=== PATIENT | female | born 1970 | race Caucasian/White ===

== ENCOUNTER 2023-06-16 13:07 | Inpatient (IN) | payer SELFPAY ==
[2023-06-16 14:41] LABS: BASOPHILS % (AUTO) 0.5 %; EOSINOPHILS % (AUTO) 0.5 %; HCT - HEMATOCRIT 33.2 % (37.0-47.0); LYMPHOCYTES # (AUTO) 0.3 10^3/uL (1.5-3.5); LYMPHOCYTES % (AUTO) 5.9 %; MEAN CORPUSCULAR HEMOGLOBIN 30.8 pg (27.0-31.0); MEAN CORPUSCULAR HGB CONC 33.1 g/dL (32.0-36.0); MEAN PLATELET VOLUME 8.7 fL (7.9-10.8); MONOCYTES # (AUTO) 0.7 10^3/uL (0.0-1.0); MONOCYTES % (AUTO) 11.5 %; NEUTROPHILS # (AUTO) 4.7 10^3/uL (1.5-6.6); NEUTROPHILS % (AUTO) 80.7 %; PLT - PLATELET COUNT 154 10^3/uL (130-450); RED BLOOD COUNT 3.57 10^6/uL (4.20-5.40); RED CELL DISTRIBUTION WIDTH 14.8 % (12.0-15.0); WHITE BLOOD COUNT 5.8 x10^3/uL (4.8-10.8)
--- NOTE | 2023-06-16 14:44 | ED Physician Documentation ---
PD HPI ABD PAIN - Stated complaint Stated Complaint: - Chief complaint Chief Complaint: Abd Pain - History obtained from History obtained from: Patient - Additional information Additional information: Patient is a 53-year-old female with no prior abdominal surgeries presenting for evaluation of decreased bowel movements for the past 2 to 3 weeks. Patient states she has been trying Dulcolax without any improvement. She states that she usually has an issue with constipation And that it often times can be several weeks between bowel movements. She does report inserting her finger into her rectum today to see if there was any stool and did not feel much. She reports having some associated nausea and 2 episodes of vomiting yesterday. No abdominal tenderness. Again no prior abdominal surgeries. She does report having decreased p.o. intake in the last week and does report feeling lightheaded now with standing. Review of Systems Constitutional: denies: Fever Cardiac: denies: Chest pain / pressure Respiratory: denies: Dyspnea GI: reports: Nausea, Constipation. denies: Abdominal Pain : denies: Dysuria PD PAST MEDICAL HISTORY - Past Medical History Past Medical History: No Cardiovascular: None Respiratory: None Neuro: None Endocrine/Autoimmune: None GI: None [employer]IDENT [place]: None : None HEENT: None Psych: None Musculoskeletal: None Derm: None - Past Surgical History Past Surgical History: Yes - Allergies Allergies/Adverse Reactions: Allergies Allergy/AdvReac Type Severity Reaction Status Date / Time No Known Drug Allergies Allergy Verified 06/16/23 13:16 - Social History Does the pt smoke?: No Smoking Status: Never smoker Does the pt drink ETOH?: No Does the pt have substance abuse?: No - Immunizations Immunizations are current?: No - POLST Patient has POLST: No PD ED PE NORMAL - General General: Alert and oriented X 3, No acute distress, Well developed/nourished - HEENT HEENT: Atraumatic, Moist mucous membranes, Pharynx benign - Neck Neck: Supple, no meningeal sign - Cardiac Cardiac: RRR, Strong equal pulses - Respiratory Respiratory: No respiratory distress, Clear bilaterally - Abdomen Abdomen: Normal bowel sounds, Soft, Non tender, Non distended - Rectal Rectal: Other (Chaperoned by IUD, normal rectal tone, no fecal impaction) - Derm Derm: Warm and dry - Neuro Neuro: Normal speech Results - Vitals Vitals: Vital Signs - 24 hr 06/16/23 06/16/2324 13:16 15:13 16:49 Temperature 36.8 C Heart Rate 110 H 84 35 L Respiratory 16 15 18 Rate Blood Pressure 135/77 H 141/85 H 146/88 H O2 Saturation 100 100 96 Oxygen O2 Source Room air - Labs Labs: Laboratory Tests 06/16/23 06/16/23 06/16/23 14:31 14:31 14:31 WBC 5.8 RBC 3.57 L Hgb 11.0 L Hct 33.2 L MCV 93.0 MCH 30.8 MCHC 33.1 RDW 14.8 Plt Count 154 MPV 8.7 Neut # (Auto) 4.7 Lymph # (Auto) 0.3 L [place] # (Auto) 0.7 Eos # (Auto) 0.0 Baso # (Auto) 0.0 Absolute Nucleated RBC 0.00 Nucleated RBC % 0.0 Sodium 127 L Potassium 2.4 L* Chloride 76 L* Carbon Dioxide 25 Anion Gap 26.0 H BUN 6 Creatinine 0.5 L Estimated GFR (MDRD) 129 Glucose 148 H Calcium 10.2 Magnesium 1.5 L Total Bilirubin 3.3 H AST 175 H ALT 62 H Alkaline Phosphatase 146 H Total Protein 7.7 Albumin 4.5 Globulin 3.2 Albumin/Globulin Ratio 1.4 Lipase 145 H PD Medical Decision Making - ED course ED course: Patient is a 53-year-old female presenting for evaluation of constipation. Patient states she has not had a good bowel movement in several weeks. She has had some recent nausea, decreased appetite and a few episodes of emesis. Abdominal exam has been not benign. She was tachycardic on arrival and does report feeling lightheaded with standing. Therefore did obtain labs including CBC and chemistries. Patient has significant electrolyte abnormalities including sodium of 127, potassium of 2.4, chloride of 76, elevated bilirubin and LFTs. CT scan of the abdomen and pelvis was obtained given her constellation of symptoms as well as lab abnormalities. There are findings of a jejunal intussusception which seems to be incidental as well as a distended gallbladder with tiny gravel versus gallstones. I did repeat my abdominal exam and she still does not have any tenderness. I also reviewed these findings with on-call general surgery who feels that she does not have a surgical process going on as she does not have tenderness. Discussed with admitting hospitalist, Dr. Weaver who will admit the patient for further management. 1630 - D/W Dr. Mascorro given CT reports of Distended gallbladder with possible gravel or tiny gallstones as well as jejunal intussusception. Again patient does not have any tenderness currently. At this time Dr. Mascorro does not feel there is a surgical need going on as she does not have any tenderness. Request medicine formally consult her if needed. Departure - Departure Disposition: 66 [facility] DC/Xfer Clinical Impression: Hyponatremia, Hypokalemia, Hypochloremia, Elevated bilirubin, Elevated liver enzymes Condition: Good Forms: PCP List
[2023-06-16 14:56] LABS: ALBUMIN 4.5 g/dL (3.2-5.5); ALBUMIN/GLOBULIN RATIO 1.4 (1.0-2.2); BILIRUBIN,TOTAL 3.3 mg/dL (0.2-1.0); CALCIUM 10.2 mg/dL (8.5-10.3); CREATININE 0.5 mg/dL (0.6-1.3); POTASSIUM 2.4 mmol/L (3.5-4.5); TOTAL PROTEIN 7.7 g/dL (6.4-8.9)
[2023-06-16] MEDS: POTASSIUM CHLOR 10 MEQ/100 ML 10 MEQ/100 ML BAG IV SCH ×2 (15:10→21:04)
[2023-06-16] MEDS: SODIUM CHLORIDE 0.9% 1,000 ML IV STA ×2 (15:10→17:34)
[2023-06-16] MEDS ORDERED: iohexoL-300 100 ML VIAL ONE (15:16)
[2023-06-16] MEDS: iohexoL-300 100 ML VIAL IVP ONE (15:40)
--- NOTE | 2023-06-16 16:24 | CT Report ---
PROCEDURE: Abdomen/Pelvis W INDICATIONS: decreased appetite/elevated lfts/vomiting/ CONTRAST: [id number] 100ml TECHNIQUE: After the administration of intravenous contrast, a CT scan of the abdomen and pelvis was performed. Images were recorded and evaluated at appropriate window settings. Reformats: coronal and sagittal. F or radiation dose reduction, the following was used: automated exposure control, adjustment of mA and /or kV according to patient size. COMPARISON: None. FINDINGS: Image quality: Diagnostic. Lower chest: Bilateral mammoplasties. Otherwise unremarkable.. Liver: Hepatomegaly and moderate diffuse hepatic steatosis. No focal liver mass. Gallbladder and biliary tree: The gallbladder is distended without gallbladder wall thickening. There is probable gallbladder gravel. Spleen: No splenomegaly. Pancreas: No pancreatic ductal dilation. Adrenals: No adrenal nodule. Kidneys and ureters: No hydronephrosis. No renal cystic lesion which requires follow up. No solid mas s. Stomach, bowel and peritoneum: Remote partial gastrectomy. No bowel distension. No pathologic free fl uid. There is a jejunal intussusception, typically a incidental transitory finding. Reference axial i mage 73 of series 2 and coronal image 57 of series 4. Lymph nodes: No central or retroperitoneal adenopathy. Vessels: No infrarenal aortic aneurysm. PELVIS Reproductive organs: Note is made of uterine fibroids.. Bladder: No abnormal wall thickening, accounting for underdistention. Pelvic lymph nodes: No pelvic adenopathy by size criteria. Bones: No aggressive osseous abnormality. Other: Bilateral fat-containing inguinal hernias. IMPRESSION: 1. Hepatomegaly, moderate diffuse hepatic steatosis. 2. Distended gallbladder without gallbladder wall thickening. There is likely gravel or tiny gallston es. 3. A jejunal intussusception is commonly a incidental transitory finding. 4. Uterine fibroids incidentally noted. Reviewed by: Charbel Montalvo MD on 06/16/2023 4:23 PM PDT Approved by: Charbel Montalvo MD on 06/16/2023 4:23 PM PDT Station ID: [id number]
[2023-06-16] MEDS: MAGNESIUM SULFATE 2 GRAM 2 GM/50 ML BAG IV ONE (16:34)
--- NOTE | 2023-06-16 17:50 | HISTORY & PHYSICAL EXAMINATION ---
Chief Complaint - Chief Complaint Chief Complaint: Abdominal Pain History of Present Illness - Admitted From Admitted From:: Emergency Room - History Obtained From Records Reviewed: Yes History obtained from: Patient and ER Physician, Dr. Neff - History of Present Illness HPI Comment/Other: Crystal Ortiz is a 53-year-old woman who presented to the emergency room with complaints of constipation and abdominal pain. She reports that she may go several days and sometimes several weeks before having a bowel movement. She states this has been going on for more than several months. She reports over the last several days she has had some vomiting. She denies fevers and chills. She has no other complaints at this time. 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 : reports: None HEENT: reports: None Psych: reports: None Musculoskeletal: reports: None Derm: reports: None MRSA Hx?: No - POLST Patient has POLST: No Meds/Allgy - Allergies Allergies/Adverse Reactions: Allergies Allergy/AdvReac Type Severity Reaction Status Date / Time No Known Drug Allergies Allergy Verified 06/16/23 13:16 Review of Systems - Gastrointestinal Gastrointestinal: reports: Constipation Exam - Vital Signs Vital Signs: Vital Signs x48h Temp Pulse Resp BP Pulse Ox 06/16/23 16:49 35 L 18 146/88 H 96 06/16/23 15:13 84 15 141/85 H 100 06/16/23 13:16 36.8 C 110 H 16 135/77 H 100 - Physical Exam General Appearance: positive: No acute distress, Alert Eyes Bilateral: positive: Conjunctivae nml Neck: positive: Thyroid nml, No JVD, Trachea midline Respiratory: positive: Other (Good air exchange in all lung ivy no wheezing no crackles.) Cardiovascular: positive: Other (Positive S1-S2 no extra heart sounds.) Abdomen: positive: Other (Soft nontender positive bowel sounds no hepatosplenomegaly.) Skin: positive: No rash Extremities: positive: Nml appearance, Pedal edema Neurologic/Psychiatric: positive: Oriented x3, Motor nml Conclusion/Plan - Problem List (1) Hyponatremia Conclusion/Plan: Ms. Ortiz has moderate hyponatremia of 127 mill equivalents of sodium. And is to correct by 6 to 8 mEq over the next 24 hours using IV fluid and salt tablets if necessary (3) Hypokalemia Conclusion/Plan: Replacement (4) Elevated liver enzymes Conclusion/Plan: Continue to monitor. - Lab Results Fish Bones: 06/16/23 14:31 06/16/23 14:31
[2023-06-16] MEDS: LACTATED RINGERS 1,000 ML IV SCH (19:47)
[2023-06-17] MEDS: SODIUM CHLORIDE FLUSH 0.9% 10 ML SYRINGE IVP SCH (00:38)
[2023-06-17 05:57] LABS: MAGNESIUM 1.9 mg/dL (1.7-2.3); PHOSPHORUS 1.5 mg/dL (2.5-5.0)
[2023-06-17 06:24] LABS: ALBUMIN 3.5 g/dL (3.2-5.5); ALBUMIN/GLOBULIN RATIO 1.4 (1.0-2.2); BILIRUBIN,TOTAL 3.5 mg/dL (0.2-1.0); CALCIUM 8.9 mg/dL (8.5-10.3); CREATININE 0.5 mg/dL (0.6-1.3); POTASSIUM 2.5 mmol/L (3.5-4.5)
[2023-06-17] MEDS: POTASSIUM PHOSPHATE 15 MMOL in SODIUM CHLORIDE 0.9% 250 ML IV ONE (08:35)
[2023-06-17] MEDS: MAGNESIUM SULFATE 2 GM in SODIUM CHLORIDE 0.9% 50 ML IV ONE (08:35)
[2023-06-17] MEDS: POTASSIUM CHLOR 10 MEQ/100 ML 10 MEQ/100 ML BAG IV SCH ×2 (09:11→15:55)
[2023-06-17] MEDS: polyethylene glycoL 3350 17 GM PACKET PO SCH (09:19)
[2023-06-17] MEDS: ENOXAPARIN 40 MG/0.4 ML SYRINGE SUBQ SCH (09:20)
--- NOTE | 2023-06-17 11:38 | PHARMACY PROGRESS NOTE ---
- Best Possible Medication History Admit Date and Time: 06/16/23 1738 Processed by: Pharmacy Medications reviewed in ED?: No Medication History completed: Yes Patient Interview: Completed Secondary Source(s): Insurance records As the person ultimately responsible for medication therapy, providers are able to order a medication from an existing home medication list in [facility] via the "Reconcile Routine" prior to Confirmation of that medication by support services manager. Such practice is discouraged except when the physician, in their clinical judgment, deems that a medical need exists for a medication without regard to previous use.
[2023-06-17] MEDS ORDERED: ACETAMINOPHEN 325 MG TABLET PO PRN (12:16)
[2023-06-17] MEDS: POTASSIUM CHLORIDE 20 MEQ TABLET PO SCH (15:39)
[2023-06-17 21:05] LABS: BUN - BLOOD UREA NITROGEN 2 mg/dL (6-20); CALCIUM 9.2 mg/dL (8.5-10.3); CARBON DIOXIDE - CO2 31 mmol/L (21-32); CHLORIDE 92 mmol/L (101-111); CREATININE 0.4 mg/dL (0.6-1.3); GFR - MDRD 167 (>89); GLUCOSE 140 mg/dL (74-104); MAGNESIUM 1.3 mg/dL (1.7-2.3); POTASSIUM 3.5 mmol/L (3.5-4.5); SODIUM 131 mmol/L (135-145)
[2023-06-17 21:13] LABS: PHOSPHORUS < 1.0 mg/dL (2.5-5.0)
[2023-06-17] MEDS ORDERED: SODIUM CHLORIDE 0.9% 250 ML IV ONE (21:37)
[2023-06-17] MEDS ORDERED: POTASSIUM PHOSPHATE 15 MMOL in SODIUM CHLORIDE 0.9% 250 ML IV SCH (22:00)
[2023-06-17] MEDS ORDERED: MAGNESIUM SULFATE 1 GM in SODIUM CHLORIDE 0.9% 50 ML IV ONE (22:53)
--- NOTE | 2023-06-17 22:53 | PROVIDER PROGRESS NOTE ---
Assessment/Plan - Problem List (1) Hyponatremia Assessment/Plan: Ms. Ortiz has moderate hyponatremia of 127 len equivalents of sodium upon admission. Her serum sodium has corrected. (3) Hypokalemia Conclusion/Plan: It appears that patient has a significant potassium deficit. Her potassium will be replaced aggressively throughout the day intravenously and by mouth. (4) Elevated liver enzymes Conclusion/Plan: Liver enzymes have improved overnight. Continue to monitor. - Current Meds Current Meds: Current Medications Generic Name Dose Route Start Last Admin Trade Name Freq PRN Reason Stop Dose Admin Enoxaparin Sodium 40 mg 06/17/23 09:00 06/17/23 09:20 Enoxaparin 40 Mg/0.4 Ml Syringe SUBQ 40 mg DAILY FITO Administration Lactated Ringer's 1,000 mls @ 125 mls/hr 06/16/23 18:00 06/17/23 18:55 Lr IV 125 mls/hr .Q8H FITO Administration Polyethylene Glycol 17 gm 06/17/23 09:00 06/17/23 09:19 Polyethylene Glycol 3350 17 Gm Packet PO 17 gm DAILY FITO Administration Potassium Chloride 40 meq 06/17/23 15:00 06/17/23 15:39 Potassium Chloride 20 Meq Tablet PO 40 meq DAILYWM IFTO Administration Sodium Chloride 10 ml 06/17/23 01:00 06/17/23 15:58 Sodium Chloride Flush 0.9% 10 Ml Syringe IVP 10 ml 0100,0900,1700 FITO Administration - Lab Result Fish Bone Diagrams: 06/16/23 14:31 06/17/23 20:37 - Additional Planning My Orders: My Active Orders 06/17/23 01:00 Sodium Chloride Flush 0.9% [Normal Saline Flush 0.9%] 10 ml IVP 0100,0900,1700 06/17/23 Breakfast Regular Diet [DIET] 06/17/23 09:00 Enoxaparin [Lovenox] 40 mg SUBQ DAILY polyethylene glycoL 3350 [Miralax] 17 gm PO DAILY 06/17/23 12:16 Acetaminophen [Tylenol] 650 mg PO Q4HR PRN 06/17/23 15:00 Potassium Chloride [K-Dur] 40 meq PO DAILYWM 06/17/23 17:39 Daily Weight [RC] 0600 Fluid Restriction [RC] IOSHIFT Miscellaenous Nursing Order [RC] QSHIFT 06/17/23 22:00 Potassium Phosphate 15 mmol Sodium Chloride 0.9% [Normal Saline 0.9%] 250 ml IV Q4H Subjective - Subjective Patient Reports: Other Objective Vital Signs: Vital Signs - 24 hr 06/16/23 06/17/23 06/17/23 23:30 05:20 13:00 Temperature 37.2 C 36.9 C 36.8 C Heart Rate [ 98 91 89 Brachial] Respiratory 22 18 16 Rate Blood Pressure 148/89 H 136/80 H 142/81 H [Right Brachial artery] O2 Saturation 98 99 98 06/17/23 06/17/23 16:07 19:40 Temperature 36.8 C 36.7 C Heart Rate [ 86 84 Brachial] Respiratory 17 16 Rate Blood Pressure 136/76 H 159/87 H [Right Brachial artery] O2 Saturation 97 100 Oxygen O2 Source Room air I&O (Last 24 Hrs): Intake and Output Totals x24h 06/15/23 06/16/23 06/17/23 23:59 23:59 23:59 Intake Total 2873 5656.667 Output Total 950 4400 Balance 1923 1256.667 General: Alert, Oriented x3, No acute distress Neck: No JVD Neuro: Alert, Non Focal Cardiovascular: Other (Positive S1-S2 no extra heart sounds.) Respiratory: Other (Good air exchange in all lung ivy no wheezing no crackles) Abdomen: Other (Positive bowel sounds soft nontender nondistended) Extremities: No cyanosis, No edema Skin: No rashes - Results Results: Laboratory Results WBC 5.8 x10^3/uL (4.8-10.8) 06/16/23 14:31 RBC 3.57 10^6/uL (4.20-5.40) L 06/16/23 14:31 Hgb 11.0 g/dL (12.0-16.0) L 06/16/23 14:31 Hct 33.2 % (37.0-47.0) L 06/16/23 14:31 MCV 93.0 fL (81.0-99.0) 06/16/23 14:31 MCH 30.8 pg (27.0-31.0) 06/16/23 14: MCHC 33.1 g/dL (32.0-36.0) 06/16/23 14:31 RDW 14.8 % (12.0-15.0) 06/16/23 14:31 Plt Count 154 10^3/uL (130-450) 06/16/23 14:31 MPV 8.7 fL (7.9-10.8) 06/16/23 14:31 Neut # (Auto) 4.7 10^3/uL (1.5-6.6) 06/16/23 14:31 Lymph # (Auto) 0.3 10^3/uL (1.5-3.5) L 06/16/23 14:31 [place] # (Auto) 0.7 10^3/uL (0.0-1.0) 06/16/23 14:31 Eos # (Auto) 0.0 10^3/uL (0.0-0.7) 06/16/23 14:31 Baso # (Auto) 0.0 10^3/uL (0.0-0.1) 06/16/23 14:31 Absolute Nucleated RBC 0.00 x10^3/uL 06/16/23 14:31 Nucleated RBC % 0.0 /100WBC 06/16/23 14:31 Sodium 131 mmol/L (135-145) L 06/17/23 20:37 Potassium 3.5 mmol/L (3.5-4.5) 06/17/23 20:37 Chloride 92 mmol/L (101-111) L 06/17/23 20:37 Carbon Dioxide 31 mmol/L (21-32) 06/17/23 20:37 Anion Gap 8.0 (6-13) 06/17/23 20:37 BUN 2 mg/dL (6-20) L 06/17/23 20:37 Creatinine 0.4 mg/dL (0.6-1.3) L 06/17/23 20:37 Estimated GFR (MDRD) 167 (>89) 06/17/23 20:37 Glucose 140 mg/dL (74-104) H 06/17/23 20:37 Calcium 9.2 mg/dL (8.5-10.3) 06/17/23 20:37 Phosphorus < 1.0 mg/dL (2.5-5.0) L* 06/17/23 20:37 Magnesium 1.3 mg/dL (1.7-2.3) L 06/17/23 20:37 Total Bilirubin 3.5 mg/dL (0.2-1.0) H 06/17/23 04:42 AST 120 IU/L (10-42) H 06/17/23 04:42 ALT 45 IU/L (10-60) 06/17/23 04:42 Alkaline Phosphatase 110 IU/L (42-121) 06/17/23 04:42 Total Protein 6.0 g/dL (6.4-8.9) L 06/17/23 04:42 Albumin 3.5 g/dL (3.2-5.5) 06/17/23 04:42 Globulin 2.5 g/dL (2.1-4.2) 06/17/23 04:42 Albumin/Globulin Ratio 1.4 (1.0-2.2) 06/17/23 04:42 Lipase 145 U/L (11-82) H 06/16/23 14:31
--- NOTE | 2023-06-17 22:55 | PROVIDER PROGRESS NOTE ---
Crank Hand Note - Crank Hand Note Crank Hand Note: RN paged "Pt was admitted for hypokalemia and hyponatremia. Phosphorus came back critical for less than 1. An after hours order for IV potassium phosphorus was put in, however we have no pharmacist in house at night who can make it. On-call pharmacist stated that we could manage it with and order for "neutrophos 250mg Q2hrs x2 doses and then a re-check of labs in am". Pharmacy will be back at 0700 to make IV dose if needed at that time. Will you please input these orders?" A: hypoKalemia P: neutra phosp ordered. am labs ordered. stopped current order Kphosp iv pending am result of neutraphosp Zaida Sheehan
[2023-06-18] MEDS: NEUTRA-PHOS 250 MG TABLET PO ONE (00:11)
[2023-06-18] MEDS: MAGNESIUM SULFATE 2 GRAM 1 GM/25 ML BAG IV ONE (00:12)
[2023-06-18 05:06] LABS: HCT - HEMATOCRIT 28.9 % (37.0-47.0); HGB - HEMOGLOBIN 9.3 g/dL (12.0-16.0); MEAN CORPUSCULAR HEMOGLOBIN 30.9 pg (27.0-31.0); MEAN CORPUSCULAR HGB CONC 32.2 g/dL (32.0-36.0); MEAN PLATELET VOLUME 9.1 fL (7.9-10.8); RED BLOOD COUNT 3.01 10^6/uL (4.20-5.40); WHITE BLOOD COUNT 5.6 x10^3/uL (4.8-10.8)
[2023-06-18 05:26] LABS: MAGNESIUM 1.5 mg/dL (1.7-2.3)
[2023-06-18 05:28] LABS: BUN - BLOOD UREA NITROGEN < 2 mg/dL (6-20); CALCIUM 9.5 mg/dL (8.5-10.3); CARBON DIOXIDE - CO2 33 mmol/L (21-32); CHLORIDE 94 mmol/L (101-111); CREATININE 0.4 mg/dL (0.6-1.3); GFR - MDRD 167 (>89); GLUCOSE 168 mg/dL (74-104); PHOSPHORUS < 1.0 mg/dL (2.5-5.0); SODIUM 135 mmol/L (135-145)
[2023-06-18] MEDS: MAGNESIUM SULFATE 2 GRAM 2 GM/50 ML BAG IV ONE (06:36)
[2023-06-18] MEDS: POTASSIUM PHOSPHATE 21 MMOL in SODIUM CHLORIDE 0.9% 250 ML IV ONE (08:11)
[2023-06-18] MEDS: POTASSIUM CHLORIDE 20 MEQ/15 ML UDC PO SCH (09:28)
[2023-06-18 14:31] LABS: PHOSPHORUS 1.8 mg/dL (2.5-5.0)
[2023-06-18] MEDS: POTASSIUM CHLOR 10 MEQ/100 ML 10 MEQ/100 ML BAG IV SCH ×2 (14:33→21:04)
[2023-06-18] MEDS: SODIUM CHLORIDE FLUSH 0.9% 10 ML SYRINGE IVP PRN (14:36)
[2023-06-18 14:41] LABS: BUN - BLOOD UREA NITROGEN < 2 mg/dL (6-20); CALCIUM 9.2 mg/dL (8.5-10.3); CARBON DIOXIDE - CO2 33 mmol/L (21-32); CHLORIDE 95 mmol/L (101-111); CREATININE 0.4 mg/dL (0.6-1.3); GFR - MDRD 167 (>89); GLUCOSE 153 mg/dL (74-104); POTASSIUM 3.8 mmol/L (3.5-4.5); SODIUM 134 mmol/L (135-145)
[2023-06-18 21:09] LABS: CALCIUM 9.3 mg/dL (8.5-10.3); CREATININE 0.4 mg/dL (0.6-1.3); MAGNESIUM 1.6 mg/dL (1.7-2.3); PHOSPHORUS 1.4 mg/dL (2.5-5.0); POTASSIUM 3.7 mmol/L (3.5-4.5)
[2023-06-18] MEDS: NEUTRA-PHOS 250 MG TABLET PO SCH (21:10)
[2023-06-18] MEDS ORDERED: POTASSIUM PHOSPHATE 21 MMOL in SODIUM CHLORIDE 0.9% 250 ML IV ONE (23:14)
--- NOTE | 2023-06-18 23:21 | PROVIDER PROGRESS NOTE ---
Assessment/Plan - Problem List (1) Hyponatremia Assessment/Plan: Ms. Ortiz has moderate hyponatremia of 127 len equivalents of sodium upon admission. Her serum sodium is currently 134. (3) Hypokalemia Conclusion/Plan: It appears that patient continues to have hypokalemia. Her potassium will be replaced aggressively throughout the day intravenously and by mouth. (4) Elevated liver enzymes Conclusion/Plan: Liver enzymes have improved overnight. Continue to monitor. (5) Hypophosphotemia Conclusion/Plan: Replacement. - Current Meds Current Meds: Current Medications Generic Name Dose Route Start Last Admin Trade Name Freq PRN Reason Stop Dose Admin Enoxaparin Sodium 40 mg 06/17/23 09:00 06/18/23 09:18 Enoxaparin 40 Mg/0.4 Ml Syringe SUBQ 40 mg DAILY FITO Administration Lactated Ringer's 1,000 mls @ 125 mls/hr 06/16/23 18:00 06/18/23 21:03 Lr IV 125 mls/hr .Q8H FITO Administration Potassium Chloride 10 meq in 100 mls @ 100 mls/hr 06/18/23 21:00 06/18/23 22: 59 Potassium Chloride IV 06/19/23 00:59 100 mls/hr Q1H FITO Administration Polyethylene Glycol 17 gm 06/17/23 09:00 06/18/23 09:28 Polyethylene Glycol 3350 17 Gm Packet PO 17 gm DAILY FITO Administration Potassium Chloride 40 meq 06/18/23 08:00 06/18/23 09:28 Potassium Chloride 20 Meq/15 Ml Udc PO 40 meq DAILYWM FITO Administration Sodium Chloride 10 ml 06/16/23 17:36 06/18/23 14:36 Sodium Chloride Flush 0.9% 10 Ml Syringe IVP 10 ml PRN PRN Administration NEEDED PER PROVIDER ORDERS Sodium Chloride 10 ml 06/17/23 01:00 06/18/23 15:56 Sodium Chloride Flush 0.9% 10 Ml Syringe IVP 10 ml 0100,0900,1700 FITO Administration Sodium Phosphate 250 mg 06/18/23 21:00 06/18/23 21:10 Neutra-Phos 250 Mg Tablet PO 250 mg TIDWM FITO Administration - Lab Result Fish Bone Diagrams: 06/18/23 04:46 06/19/23 14:03 - Additional Planning My Orders: My Active Orders 06/18/23 08:00 Potassium Chloride Oral Soln [Potassium Chloride] 40 meq PO DAILYWM 06/18/23 21:00 Neutra-Phos [K-Phos Neutral] 250 mg PO TIDWM Potassium Chlor 10 Meq/100 ml [Potassium Chloride] 10 meq in 100 ml IV Q1H 06/18/23 23:14 Potassium Phosphate/NS 21 mmol/250 mL x 1 Potassium Phosphate 21 mmol Sodium Chloride 0.9% [Normal Saline 0.9%] 250 ml IV ONCE Subjective - Subjective Patient Reports: Other (Alert. Overall feels better. Denies chest pain and abdominal pain no other complaints at this time.) Objective Vital Signs: Vital Signs - 24 hr 06/17/23 06/18/23 06/18/23 23:20 05:22 07:31 Temperature 37.2 C 37.0 C 37.2 C Heart Rate [ 93 78 Brachial] Heart Rate [ 94 Monitoring electrodes] Respiratory 20 18 16 Rate Blood Pressure [Left Brachial artery] Blood Pressure 130/77 129/71 133/82 H [Right Brachial artery] O2 Saturation 98 98 97 06/18/23 06/18/23 06/18/23 09:00 12:50 15:41 Temperature 37.2 C 37.1 C 37.1 C Heart Rate [ 91 88 86 Brachial] Heart Rate [ Monitoring electrodes] Respiratory 18 20 18 Rate Blood Pressure 136/88 H 140/78 H [Left Brachial artery] Blood Pressure 127/83 H [Right Brachial artery] O2 Saturation 96 98 99 06/18/23 06/18/23 06/18/23 17:00 21:25 23:02 Temperature 37.1 C 37.0 C 37.2 C Heart Rate [ 85 Brachial] Heart Rate [ 95 83 Monitoring electrodes] Respiratory 18 20 18 Rate Blood Pressure 135/85 H 133/84 H [Left Brachial artery] Blood Pressure 131/82 H [Right Brachial artery] O2 Saturation 98 99 99 Oxygen O2 Source Room air I&O (Last 24 Hrs): Intake and Output Totals x24h 06/16/23 06/17/23 06/18/23 23:59 23:59 23:59 Intake Total 2873 5656.667 5189.084 Output Total 950 5100 3675 Balance 1923 315.004 6735.084 General: Alert, Oriented x3, No acute distress HEENT: Atraumatic Neck: No JVD, No thyromegaly Neuro: Alert, Non Focal Cardiovascular: Other (Positive S1-S2 no extra heart sounds.) Respiratory: Other (Good air exchange in all lung ivy no wheezing no crackles.) Abdomen: Other (Soft nontender nondistended positive bowel sounds.) Extremities: Other Skin: No rashes - Results Results: Laboratory Results WBC 5.6 x10^3/uL (4.8-10.8) 06/18/23 04:46 RBC 3.01 10^6/uL (4.20-5.40) L 06/18/23 04:46 Hgb 9.3 g/dL (12.0-16.0) L 06/18/23 04:46 Hct 28.9 % (37.0-47.0) L 06/18/23 04:46 MCV 96.0 fL (81.0-99.0) 06/18/23 04:46 MCH 30.9 pg (27.0-31.0) 06/18/23 04:46 MCHC 32.2 g/dL (32.0-36.0) 06/18/23 04:46 RDW 15.0 % (12.0-15.0) 06/18/23 04:46 Plt Count 149 10^3/uL (130-450) 06/18/23 04:46 MPV 9.1 fL (7.9-10.8) 06/18/23 04:46 Neut # (Auto) 4.7 10^3/uL (1.5-6.6) 06/16/23 14:31 Lymph # (Auto) 0.3 10^3/uL (1.5-3.5) L 06/16/23 14:31 [place] # (Auto) 0.7 10^3/uL (0.0-1.0) 06/16/23 14:31 Eos # (Auto) 0.0 10^3/uL (0.0-0.7) 06/16/23 14:31 Baso # (Auto) 0.0 10^3/uL (0.0-0.1) 06/16/23 14:31 Absolute Nucleated RBC 0.00 x10^3/uL 06/16/23 14:31 Nucleated RBC % 0.0 /100WBC 06/16/23 14:31 Sodium 134 mmol/L (135-145) L 06/18/23 20:47 Potassium 3.7 mmol/L (3.5-4.5) 06/18/23 20:47 Chloride 95 mmol/L (101-111) L 06/18/23 20:47 Carbon Dioxide 32 mmol/L (21-32) 06/18/23 20:47 Anion Gap 7.0 (6-13) 06/18/23 20:47 BUN 2 mg/dL (6-20) L 06/18/23 20:47 Creatinine 0.4 mg/dL (0.6-1.3) L 06/18/23 20:47 Estimated GFR (MDRD) 167 (>89) 06/18/23 20:47 Glucose 160 mg/dL (74-104) H 06/18/23 20:47 Calcium 9.3 mg/dL (8.5-10.3) 06/18/23 20:47 Phosphorus 1.4 mg/dL (2.5-5.0) L 06/18/23 20:47 Magnesium 1.6 mg/dL (1.7-2.3) L 06/18/23 20:47 Total Bilirubin 3.5 mg/dL (0.2-1.0) H 06/17/23 04:42 AST 120 IU/L (10-42) H 06/17/23 04:42 ALT 45 IU/L (10-60) 06/17/23 04:42 Alkaline Phosphatase 110 IU/L (42-121) 06/17/23 04:42 Total Protein 6.0 g/dL (6.4-8.9) L 06/17/23 04:42 Albumin 3.5 g/dL (3.2-5.5) 06/17/23 04:42 Globulin 2.5 g/dL (2.1-4.2) 06/17/23 04:42 Albumin/Globulin Ratio 1.4 (1.0-2.2) 06/17/23 04:42 Lipase 145 U/L (11-82) H 06/16/23 14:31
[2023-06-19 06:14] LABS: MAGNESIUM 1.7 mg/dL (1.7-2.3); PHOSPHORUS 2.1 mg/dL (2.5-5.0)
[2023-06-19 06:17] LABS: BUN - BLOOD UREA NITROGEN < 2 mg/dL (6-20); CALCIUM 9.3 mg/dL (8.5-10.3); CARBON DIOXIDE - CO2 29 mmol/L (21-32); CHLORIDE 100 mmol/L (101-111); CREATININE 0.3 mg/dL (0.6-1.3); GFR - MDRD 233 (>89); GLUCOSE 142 mg/dL (74-104); POTASSIUM 3.8 mmol/L (3.5-4.5); SODIUM 137 mmol/L (135-145)
[2023-06-19] MEDS: POTASSIUM PHOSPHATE 15 MMOL in SODIUM CHLORIDE 0.9% 250 ML IV ONE (08:39)
[2023-06-19 14:30] LABS: CALCIUM 9.4 mg/dL (8.5-10.3); CREATININE 0.4 mg/dL (0.6-1.3); PHOSPHORUS 3.8 mg/dL (2.5-5.0); POTASSIUM 3.9 mmol/L (3.5-4.5)
[2023-06-19 15:34] VITALS: BP 123/79; O2SAT 96
--- NOTE | 2023-06-19 15:59 | DISCHARGE SUMMARY ---
Discharge Summary Condition at Discharge: Good - ALLERGIES Allergies/Adverse Reactions: Allergies Allergy/AdvReac Type Severity Reaction Status Date / Time No Known Drug Allergies Allergy Verified 06/16/23 13:16 - MEDICATIONS Home Medications: Ambulatory Orders Medication Instructions Recorded Confirmed Multivitamin 1 tab PO DAILY 06/17/23 06/17/23 - LABS Result Diagrams: 06/18/23 04:46 06/19/23 14:03
--- NOTE | 2023-06-19 15:59 | Discharge Plan ---
Discharge Plan Problem Reviewed?: Yes Disposition: 01 Home, Self Care Condition: Good Diet: Regular Activity Restrictions: Activity as Tolerated Shower Restrictions: No Driving Restrictions: No Weight Bearing: Full Weight Instruction Topics: Hyponatremia Dc, Vomiting Ch Health Concerns: Crystal Ortiz is a 53-year-old woman who presented to the emergency room with complaints of constipation and abdominal pain. She reports a long history of constipation and may go days to weeks before bowel movement. She reports she had multiple episodes of vomiting for multiple days prior to her hospitalization. Laboratory workup in the emergency room revealed a serum sodium of 127, serum potassium of 2.4, serum chloride of 76, serum magnesium of 1.5, and a serum phosphate of 1.5. Ms. Greenfield was admitted to the hospital and treated with IV fluid for fluid hydration. Her potassium, phosphate and magnesium were all replaced intravenously and by mouth. It took multiple days to normalize her electrolytes. This afternoon her electrolytes are stable and have been normalized. She is stable to discharge. Plan of Treatment: 1. Take all medications as directed. 2. Please obtain a primary care provider. 3. Please use senna and Colace on a daily basis as needed for symptoms of tach constipation. Senna and Colace are medications that can be obtained [id number]. 4. Please consider a gastroenterology consult if you continue to have difficulty with constipation. Recommend a trial of Colace and senna at home for constipation. Care Goals: Goal of care is to return to baseline function and improve symptoms of constipation. Assessment: Crystal Ortiz is a 53-year-old woman who was admitted on June 16, 2023 with complaints of constipation and abdominal pain. She was found to have moderate hyponatremia and significant electrolyte abnormalities with hypokalemia, hypophosphatemia and hypomagnesia. Electrolytes have been replaced, sodium has stabilized and patient is stable for transfer to home. No Smoking: If you smoke, Please STOP! Call for help.
== END 2023-06-19 17:07 | disposition home or self-care (01) | DRG 641 ==
LOC: ED 13:07 → MS3 17:36
PROVIDERS: ADMIT Internal Medicine; ATTEND Internal Medicine
DX: E87.1 Hypo-osmolality and hyponatremia (principal); R17 Unspecified jaundice; E87.6 Hypokalemia; E83.39 Other disorders of phosphorus metabolism; E83.42 Hypomagnesemia; K59.00 Constipation, unspecified; R74.8 Abnormal levels of other serum enzymes; R00.0 Tachycardia, unspecified; E87.8 Other disorders of electrolyte and fluid balance, not elsewhere classified
CPT/HCPCS: 36415; 74177; 80048; 80053; 83690; 83735; 84100; 84132; 85025; 85027; 99285; A9270; J1650; J7120; Q9967

== ENCOUNTER 2024-10-28 15:07 | Observation (INO) ==
[2024-10-28 16:17] LABS: HCT - HEMATOCRIT 36.3 % (37.0-47.0); HGB - HEMOGLOBIN 12.1 g/dL (12.0-16.0); MEAN PLATELET VOLUME 8.8 fL (7.9-10.8); NRBC ABSOLUTE COUNT (AUTO) 0.00 x10^3/uL; NUCLEATED RED BLOOD CELLS AUTO 0.0 /100WBC; PLT - PLATELET COUNT 176 10^3/uL (130-450); RED CELL DISTRIBUTION WIDTH 18.5 % (12.0-15.0)
[2024-10-28 16:33] LABS: ALT ALANINE AMINOTRANSFERASE 21.0 IU/L (10-60); AST ASPARTATE AMINOTRANSFERASE 74.0 IU/L (10-42); BUN - BLOOD UREA NITROGEN 8.0 mg/dL (6-20); CARBON DIOXIDE - CO2 23.0 mmol/L (21-32); CREATININE 0.5 mg/dL (0.6-1.3); GFR - MDRD 129.0 (>89)
[2024-10-28 17:01] LABS: INR 1.6 (0.8-1.2); PT - PROTHROMBIN TIME 17.8 secs (9.9-12.6)
[2024-10-28 17:09] LABS: PHOSPHORUS 2.4 mg/dL (2.5-5.0)
[2024-10-28] MEDS: ONDANSETRON 4 MG/2 ML VIAL IVP STA (17:13)
[2024-10-28] MEDS: LORazepam 2 MG/ML VIAL IVP STA ×2 (17:15→21:11)
[2024-10-28] MEDS: PANTOPRAZOLE 40 MG VIAL IVP STA (17:16)
[2024-10-28] MEDS: THIAMINE INJ 100 MG, MAGNESIUM SULFATE 2 GM, MULTIVITAMIN 10 ML, FOLIC ACID INJ 1 MG in... IV STA (17:19)
[2024-10-28] MEDS: SODIUM CHLORIDE 0.9% 1,000 ML IV STA ×2 (17:20→21:11)
--- NOTE | 2024-10-28 18:52 | ED Physician Documentation ---
History of Present Illness Stated complaint Stated Complaint: WEAK, [place] Chief complaint Chief Complaint: Abd Pain History obtained from History obtained from: Patient History of Present Illness Pain level max: 0 Pain level now: 0 Additonal information Additional information: Patient is a 54-year-old female who presents to the emergency department complaining of nausea and vomiting as well as generalized weakness for the past 4 days. She states that she has a history of alcoholism, started drinking heavily about 2 months ago, states has weaned herself off of alcohol over the past 2 weeks. Last drink was 1.5 days ago. She states she is not having pain but has no appetite and feels generally weak. Review of Systems Constitutional Reports: Chills; Denies: Fever Cardiovascular Denies: chest pain or palpitations Respiratory Denies: Cough Gastrointestinal Denies: Mike blood emesis, Coffee grounds in vomit, Rectal bleeding or Melena Meds/Allgy Home Medications Ambulatory Orders Medication Instructions Recorded Confirmed No Known Home Medications 10/28/2410/11 Allergies Allergies Allergy/AdvReac Type Severity Reaction Status Date / Time No Known Drug Allergies Allergy Verified 10/28/24 15:29 PFSH Active Problems All Active Problems (Updated 10/28/24 @ 23:01 by Moises Ramirez MD) Alcohol withdrawal (Acute) Hyperbilirubinemia (Acute) Abnormal CT of liver (Acute) Liver mass (Acute) Medical History Medical History (Updated 10/28/24 @ 23:01 by Moises Ramirez MD) Alcohol abuse High cholesterol HTN (hypertension) Surgical History Surgical History (Updated 10/28/24 @ 16:17 by Anju Crain RN) H/O gastric sleeve Social History Social History (Updated 10/28/24 @ 16:17 by Anju Crain RN) Smoking Status: Never smoker Second hand tobacco smoke exposure: Yes Do you dip or chew tobacco?: No Do you vape?: No Level: Independent Do you feel safe in your home environment?: Yes History of physical, verbal, emotional, or financial abuse?: No POLST Patient has POLST: No Exam Exam Vital Signs: Vital Signs x48h Temp Pulse Resp BP Pulse Ox 10/28/24 21:14 96 18 154/70 H 99 10/28/24 20:23 101 H 20 171/83 H 99 10/28/24 19:00 85 18 149/79 H 97 10/28/24 17:17 100 18 152/81 H 99 10/28/24 15:42 90 18 150/85 H 100 10/28/24 15:25 36.2 C L 112 H 18 139/75 H 99 Constitutional normal general appearance and no apparent distress Mild jaundice and mild scleral icterus HENMT oropharynx normal moist mucous membranes Eyes PERRL Neck/C-Spine visual inspection normal Respiratory breath sounds equal bilaterally, normal respiratory effort and clear to auscultation bilaterally Cardiovascular normal heart rate noted and regular rhythm noted Gastrointestinal abdomen normal to inspection, abdomen soft to palpation, nontender to palpation and nondistended Genitourinary no CVA tenderness Extremities no edema Neurology speech normal Psychiatry mental status grossly normal and oriented x3 Skin skin color normal Results Vitals Vitals: Vital Signs - 24 hr 10/28/24 15:25 10/28/24 15:42 10/28/24 17:17 Temperature 36.2 C L Temperature Source Temporal Artery Scan Pulse Rate 112 H 90 100 Respiratory Rate 18 18 18 Blood Pressure 139/75 H 150/85 H 152/81 H O2 Saturation 99 100 99 O2 Source Room air Room air Room air Pain Intensity 0 0 0 10/28/24 19:00 10/28/24 20:23 10/28/24 21:14 Temperature Temperature Source Pulse Rate 85 101 H 96 Respiratory Rate 18 20 18 Blood Pressure 149/79 H 171/83 H 154/70 H O2 Saturation 97 99 99 O2 Source Room air Room air Room air Pain Intensity 0 0 0 Oxygen O2 Source Room air Labs Labs: Laboratory Tests 10/28/24 10/28/24 10/28/24 16:11 16:46 20:15 WBC 11.8 H RBC 3.30 L Hgb 12.1 Hct 36.3 L MCV 110.0 H MCH 36.7 H MCHC 33.3 RDW 18.5 H Plt Count 176 MPV 8.8 Neut # (Auto) 9.9 H Lymph # (Auto) 0.9 L [place] # (Auto) 0.8 Eos # (Auto) 0.1 Baso # (Auto) 0.1 Absolute Nucleated RBC 0.00 Nucleated RBC % 0.0 PT 17.8 H INR 1.6 H APTT 36.7 H Sodium 137 Potassium 3.1 L Chloride 95 L Carbon Dioxide 23 Anion Gap 19.0 H BUN 8 Creatinine 0.5 L Estimated GFR (MDRD) 129 Glucose 111 H Calcium 8.7 Phosphorus 2.4 L Magnesium 1.7 Total Bilirubin 5.6 H Direct Bilirubin 3.16 H AST 74 H ALT 21 Alkaline Phosphatase 189 H Total Protein 6.7 Albumin 3.2 Globulin 3.5 Albumin/Globulin Ratio 0.9 L Lipase 22 Urine Color YELLOW Urine Clarity CLEAR Urine pH 7.0 Ur Specific [place] 1.010 Urine Protein NEGATIVE Urine Glucose (UA) NEGATIVE Urine Ketones 40 H Urine Occult Blood NEGATIVE Urine Nitrite NEGATIVE Urine Bilirubin NEGATIVE Urine Urobilinogen 4 H Ur Leukocyte Esterase TRACE H Urine RBC None Seen Urine WBC 4-5 Ur Squamous Epith Cells RARE Squamous Urine Bacteria Many H Urine Casts 0-2 Hyaline Casts Ur Microscopic Review INDICATED Urine Culture Comments INDICATED Rads (name of study) CT abdomen pelvis: Relevant Findings:: Final report received RUQ ultrasound: Relevant Findings:: Final report received PD Medical Decision Making ED course Complexity details: reviewed results, re-evaluated patient, considered differential and d/w patient ED course: 54-year-old female, history of alcoholism, states that she has been weaning herself off of alcohol, last drink was about 36 hours ago. Appears to be in mild withdrawal with some tachycardia. Improved with Ativan, 1 mg about every 4 hours. Also given IV fluids and a banana bag. Her nausea and vomiting did resolve. She does have elevation of her bilirubin, therefore CT scan and ultrasound were performed. Possible liver abscess versus fatty liver on CT scan. MRI is recommended. Given her elevated white count, alcohol withdrawal and some chills, we will place in observation overnight for liver MRI in the morning. Given Rocephin for UTI. Discussed the case with the hospitalist who accepts. Patient has chronically elevated bilirubin, but this is slightly higher than her usual. Last bilirubin here was 3. Pantoprazole also given. This document was made in part using voice recognition software. While efforts are made to proofread this document, sound alike and grammatical errors may occur. Discharge Plan Discharge Patient Disposition: ED Place in Observation Condition: Stable Clinical Impression: Abnormal CT of liver, Hyperbilirubinemia Alcohol withdrawal Qualifiers: Complication of substance-induced condition: uncomplicated Qualified Code(s): F10.930 - Alcohol use, unspecified with withdrawal, uncomplicated Interventions: ED Admission Assessment Last Done: 10/28/24 21:51 Vitals documented within 30 minutes of discharge?: Yes
--- NOTE | 2024-10-28 19:53 | CT Report ---
PROCEDURE: CT Abdomen/Pelvis W INDICATIONS: elevated bilirubin, etoh CONTRAST: [id number] 100ML TECHNIQUE: After the administration of intravenous contrast, a CT scan of the abdomen and pelvis was performed. Images were recorded and evaluated at appropriate window settings. Reformats: coronal and sagittal. For radiation dose reduction, the following was used: automated exposure control, adjustment of mA and/or kV according to patient size. COMPARISON: 06/16/2023 FINDINGS: Image quality: Diagnostic. Lower chest: Bilateral mammoplasties. Heart size is within normal limits. Lung bases are clear.. Liver: Moderate diffuse hepatic steatosis there is development of a degree of edematous change in the caudate. Question development of either 2 focal hepatic abscesses or 2 areas of marked fatty replacement subjacent to the gallbladder in the liver. Reference coronal image 32 of series 4 and which both areas are seen, measuring 4.1 cm and 3.5 cm respectively.. Gallbladder: Multiple gallstones are present in the gallbladder. No gallbladder wall thickening. Biliary tree: No intrahepatic or extrahepatic dilation, accounting for age. Spleen: No splenomegaly. Pancreas: No pancreatic ductal dilation. Adrenals: No adrenal nodule. Kidneys and ureters: No hydronephrosis. No renal cystic lesion which requires follow up. No solid mass. Stomach, bowel and peritoneum: Remote partial gastrectomy. No pathologic free fluid. Lymph nodes: No central or retroperitoneal adenopathy. Vessels: No infrarenal aortic aneurysm. Patent portal vein. PELVIS Reproductive organs: Unremarkable. Bladder: No abnormal wall thickening. Pelvic lymph nodes: No pelvic adenopathy by size criteria. Bones: No aggressive osseous abnormality. Other: No significant ventral or inguinal hernia. IMPRESSION: 1. Hepatomegaly, moderate diffuse hepatic steatosis, as before. 2. Question development of some 2 small focal liver abscess cavities or areas of severe steatosis subjacent to the gallbladder. 3. Cholelithiasis. Comment: Consider liver protocol MRI to differentiate between areas of hepatic abscess versus areas of more impressive hepatic steatosis. Reviewed by: Charbel Montalvo MD on 10/28/2024 7:50 PM PDT Approved by: Charbel Montalvo MD on 10/28/2024 7:50 PM PDT Station ID: [id number]
[2024-10-28 20:40] LABS: CASTS, URINE 0-2 Hyaline Casts /LPF; GLUCOSE, URINE (UA) NEGATIVE (NEGATIVE); KETONES,URINE (UA) 40 mg/dL (NEGATIVE); OCCULT BLOOD,URINE NEGATIVE (NEGATIVE); SQUAMOUS EPITHELIAL CELL,UR RARE Squamous (<= Few)
--- NOTE | 2024-10-28 20:48 | Ultrasound Report ---
PROCEDURE: US Abdomen Limited INDICATIONS: elevated bilirubin TECHNIQUE: Real-time focused scanning was performed of the abdomen, with image documentation. COMPARISONS: CT of abdomen and pelvis from the same day and dated 06/16/2023 FINDINGS: Liver: Liver is enlarged and measures 22.6 cm in length. Heterogeneously echogenic liver parenchyma is seen. No solid-appearing hepatic lesion. Normal hepatopetal flow is seen in patent main portal vein. Gallbladder: Cholesterol stones are noted in dependent portion of gallbladder lumen with through acoustic shadowing. There is gallbladder wall thickening measures up to 4.2 mm in thickness. No pericholecystic fluid. No sonographic Dukes's sign. Biliary ducts: Intrahepatic bile ducts are non-dilated. Extrahepatic bile duct caliber measures 4 mm. Normal is 6-7 mm or less in diameter, or 10 mm or less post-cholecystectomy. Pancreas: Visualized portions of the pancreas are sonographically normal. Right kidney: Normal in size and echotexture. Right kidney measures cm long. No hydronephrosis or nephrolithiasis. No solid masses. No complex renal cystic lesions which require follow-up. IVC: Intrahepatic inferior vena cava is patent. Miscellaneous: No free abdominal fluid. IMPRESSION: 1. Hepatomegaly and hepatic steatosis. No discrete hepatic lesion. Hepatopetal flow is seen in the main portal vein. 2. Cholelithiasis with gallbladder wall thickening. No evidence of acute cholecystitis. Finding may represent chronic cholecystitis versus under distention. Clinical correlation and follow-up is recommended. 3. No biliary ductal dilatation. Reviewed by: Dinesh Syed MD on 10/28/2024 8:45 PM PDT Approved by: Dinesh Syed MD on 10/28/2024 8:45 PM PDT Station ID: [id number]
[2024-10-28] MEDS ORDERED: LORazepam 2 MG/ML VIAL IVP PRN (21:30)
--- NOTE | 2024-10-28 21:38 | HISTORY & PHYSICAL EXAMINATION ---
Chief Complaint Chief Complaint Chief Complaint: n/v History of Present Illness Admitted From Admitted From:: home History Obtained From Records Reviewed: last admission, June 2023 History obtained from: patient History of Present Illness HPI Comment/Other: 54-year-old female with history of alcoholism, 5 days since her last drink presents to the emergency department with complaints of weakness nausea and vomiting for the last 4 days. She states it has been 5 days since her last drink. She had weaned herself down off of drinking vodka "all day every day for years. She was treated in the emergency department for her vomiting with Zofran and lorazepam. She did have success but in the course of her workup had a right upper quadrant ultrasound significant for contracted gallbladder with cholelithiasis as well as a CT of the abdomen pelvis which is suggestive of possible liver abscess. She has not been running any fever or chills she has been having a pressure-like pain in the right upper quadrant of her abdomen that has been ongoing for quite some time now. She had been having loose stools until yesterday when she had a normal formed bowel movement. She has a past surgical history of gastric sleeve. She has never had a screening colonoscopy and she does not know if she has any history of bowel disease. Denies IVDU, tobacco, marijuana. Meds/Allgy Home Medications Ambulatory Orders Medication Instructions Recorded Confirmed No Known Home Medications 10/28/2410/11 Allergies Allergies Allergy/AdvReac Type Severity Reaction Status Date / Time No Known Drug Allergies Allergy Verified 10/28/24 15:29 PFSH Active Problems All Active Problems (Updated 10/28/24 @ 21:26 by OMARI Helton) Liver mass (Acute) Medical History Medical History (Updated 10/28/24 @ 21:26 by OMARI Helton) Alcohol abuse High cholesterol HTN (hypertension) Surgical History Surgical History (Updated 10/28/24 @ 16:17 by Anju Crain RN) H/O gastric sleeve Social History Social History (Updated 10/28/24 @ 16:17 by Anju Crain RN) Smoking Status: Never smoker Do you vape?: No Level: Independent Do you feel safe in your home environment?: Yes History of physical, verbal, emotional, or financial abuse?: No POLST Patient has POLST: No Review of Systems Status of ROS: 10 or more systems reviewed and unremarkable except as noted in history and below Prior Level of Functionality: Independent normally. recently not feeling well at all. Is not keeping up with her personal needs. Lives with her and her mother. Does not work. Exam Exam Vital Signs: Vital Signs x48h Temp Pulse Resp BP Pulse Ox 10/28/24 21:14 96 18 154/70 H 99 10/28/24 20:23 101 H 20 171/83 H 99 10/28/24 19:00 85 18 149/79 H 97 10/28/24 17:17 100 18 152/81 H 99 10/28/24 15:42 90 18 150/85 H 100 10/28/24 15:25 36.2 C L 112 H 18 139/75 H 99 Constitutional normal general appearance and no apparent distress Not tremulous HENMT normocephalic Eyes conjunctivae normal and scleral icterus noted Neck/C-Spine visual inspection normal Lymph no lymphadenopathy noted Chest inspection of chest normal Respiratory breath sounds equal bilaterally, normal respiratory effort and clear to auscultation bilaterally Cardiovascular normal heart rate noted Gastrointestinal abdomen normal to inspection and abdomen soft to palpation Mild tenderness to significant pressure in the right upper quadrant. Genitourinary no CVA tenderness Extremities normal to inspection and normal to palpation Neurology cable tender II-XII intact, no movement abnormality noted, speech normal and GCS 15 Psychiatry mental status grossly normal, oriented x3, thought process normal and cooperative Skin skin color normal xerosis Conclusion/Plan Problem List (1) Liver mass: Plan: Right upper quadrant ultrasound significant for hepatomegaly and hepatic steatosis. There is no discrete hepatic lesion identified in the right upper quadrant ultrasound there is cholelithiasis with gallbladder wall thickening. This is likely under distention secondary to the fact that the patient has not been eating and has been vomiting. There is no biliary ductal dilatation. Her CT of the abdomen pelvis is more concerning, showing hepatomegaly, moderate diffuse hepatic steatosis there is possible evidence of 2 small focal liver abscess cavities or areas of severe steatosis subadjacent to the gallbladder. Radiologist recommends liver protocol MRI. This patient presents with history of alcoholism, 5 days past her last drink with right upper quadrant abdominal pressure nausea and vomiting. She has no access to healthcare she currently has no primary care provider nor does she have health insurance. It is possible that she has a liver abscess. She has never had a colonoscopy. After discussion with Dr. So in the emergency department I am going to admit this patient to observation status to obtain liver MRI in the morning. I will also repeat her LFTs as her bilirubin was elevated at 5.0 on admission. (2) Alcohol abuse: Plan: Last drink was 5 days ago, severe nausea and vomiting which has been controlled with IV medications. Patient is having also some hypertension and tachycardia which could be related to alcohol withdrawal. This been well-controlled in the emergency department with several doses of Ativan. I will order Ativan 1 mg IV every 4 hours as needed overnight for tachycardia and agitation. Will plan to discharge her to home in the morning without benzodiazepines. (3) High cholesterol: Plan: History of hyperlipidemia. Would recommend obtaining primary care and follow-up in the outpatient environment. (4) HTN (hypertension): Plan: History of hypertension, has not been on meds in quite some time. We will monitor blood pressure while she is here recommend primary care follow-up and ambulatory blood pressure monitoring. Plan I have spent 78 minutes in the care of this patient today. This includes time [id number], review and ordering of diagnostic imaging and laboratory studies and consultation with other providers. Monitoring the patient's signs symptoms, evaluation of medication effectiveness and patient's response to treatment. Lab Results Lab results reviewed: Yes 10/28/24 16:11 10/28/24 16:11 Core Measures Anticipated LOS I expect patient to be DC'd or transferred within 96 hours.: Yes DVT/VTE - Prophylaxis VTE/DVT Device ordered at admit?: Yes VTE/DVT Prophylaxis med ordered at admit?: Yes
[2024-10-28] MEDS ORDERED: ONDANSETRON 4 MG/2 ML VIAL IVP PRN (22:04)
[2024-10-28] MEDS ORDERED: SODIUM CHLORIDE FLUSH 0.9% 10 ML SYRINGE IVP PRN (22:04)
[2024-10-28] MEDS ORDERED: ACETAMINOPHEN 325 MG TABLET PO PRN (22:04)
[2024-10-28] MEDS ORDERED: oxyCODONE 5 MG TABLET PO PRN (22:04)
[2024-10-29] MEDS: SODIUM CHLORIDE FLUSH 0.9% 10 ML SYRINGE IVP SCH (01:00)
[2024-10-29 05:42] LABS: HCT - HEMATOCRIT 31.4 % (37.0-47.0); HGB - HEMOGLOBIN 10.1 g/dL (12.0-16.0); MEAN PLATELET VOLUME 8.8 fL (7.9-10.8); NRBC ABSOLUTE COUNT (AUTO) 0.00 x10^3/uL; NUCLEATED RED BLOOD CELLS AUTO 0.0 /100WBC; PLT - PLATELET COUNT 147 10^3/uL (130-450); RED CELL DISTRIBUTION WIDTH 18.6 % (12.0-15.0)
[2024-10-29 05:51] LABS: SLIDE REVIEW? Indicated
[2024-10-29 06:07] LABS: ALT ALANINE AMINOTRANSFERASE 17.0 IU/L (10-60); AST ASPARTATE AMINOTRANSFERASE 60.0 IU/L (10-42); BUN - BLOOD UREA NITROGEN 7.0 mg/dL (6-20); CARBON DIOXIDE - CO2 27.0 mmol/L (21-32); CREATININE 0.4 mg/dL (0.6-1.3); GFR - MDRD 166.0 (>89)
[2024-10-29 07:00] LABS: PLATELET ESTIMATE, MANUAL NORMAL (130-450,000) (NORMAL); PLATELET MORPHOLOGY NORMAL APPEARANCE (NORMAL)
--- NOTE | 2024-10-29 07:25 | PROVIDER PROGRESS NOTE ---
Subjective Prog Note Date Prog Note Date: 10/29/24 Prog Note Time: 07:22 Subjective Subjective: Admitted getting a liver MRI. She presented with abdominal pain, nausea, vomiting. She has evidence of cirrhosis with poor synthetic dysfunction. Her imaging so far also is consistent with hepatic steatosis. Awaiting MRI with liver protocol. She has clear evidence of alcohol hepatitis. Last drink 1 week ago. Not in active withdrawal. MDF is 36. Started steroids this morning. Current Medications Current Medications Current Medications: Current Medications Generic Name Dose Route Start Last Admin Trade Name Freq PRN Reason Stop Dose Admin Acetaminophen 650 mg 10/28/24 22:04 Acetaminophen 325 Mg Tablet PO Q4HR PRN Pain 1 to 4, or Fever Heparin Sodium (Porcine) 5,000 unit 10/29/24 09:00 Heparin 5,000 Unit/Ml Vial SUBQ BID FITO Lorazepam 1 mg 10/28/24 21:30 Lorazepam 2 Mg/Ml Vial IVP Q4H PRN anxiety or agitation Ondansetron HCl 4 mg 10/28/24 22:04 Ondansetron 4 Mg/2 Ml Vial IVP Q6HR PRN Nausea / Vomiting Oxycodone HCl 5 mg 10/28/24 22:04 Oxycodone 5 Mg Tablet PO Q4HR PRN Pain 5 to 7 Potassium Chloride 40 meq 10/29/24 07:18 Potassium Chloride 20 Meq Tablet PO 10/29/24 07:19 ONCE ONE Sodium Chloride 10 ml 10/28/24 22:04 Sodium Chloride Flush 0.9% 10 Ml Syringe IVP PRN PRN NEEDED PER PROVIDER ORDERS Sodium Chloride 10 ml 10/29/24 01:00 10/29/24 01:00 Sodium Chloride Flush 0.9% 10 Ml Syringe IVP 10 ml [id number],[id number],1700 [facility] Administration Objective Vital Signs/Intake & Output Vital Signs: Vital Signs x48h Temp Pulse Resp BP BP Pulse Ox 10/29/24 05:03 36.7 C 93 18 135/70 H 94 10/29/24 00:40 36.5 C 100 18 130/72 98 Intake & Output: Intake & Output 10/26/24 10/27/24 10/28/24 10/29/24 23:59 23:59 23:59 23:59 Intake Total 3015.2 / 3015.2 Output Total 1200 / 1200 400 / 400 Balance 1815.2 / 1815.2 -400 / -400 Weight (kg) 72 kg Lab Results 10/29/24 04:50 10/29/24 04:50 Other Labs: Lab Results x24hrs 10/29/24 10/29/24 10/29/24 Range/Units 04:50 04:50 04:50 WBC 10.8 (4.8-10.8) x10^3/uL RBC 2.76 L (4.20-5.40) 10^6/uL Hgb 10.1 L (12.0-16.0) g/dL Hct 31.4 L (37.0-47.0) % MCV 113.8 H (81.0-99.0) fL MCH 36.6 H (27.0-31.0) pg MCHC 32.2 (32.0-36.0) g/dL RDW 18.6 H (12.0-15.0) % Plt Count 147 (130-450) 10^3/uL MPV 8.8 (7.9-10.8) fL Neut # (Auto) 8.8 H (1.5-6.6) 10^3/uL Lymph # (Auto) 1.0 L (1.5-3.5) 10^3/uL [place] # (Auto) 0.7 (0.0-1.0) 10^3/uL Eos # (Auto) 0.2 (0.0-0.7) 10^3/uL Baso # (Auto) 0.1 (0.0-0.1) 10^3/uL Absolute Nucleated RBC 0.00 x10^3/uL Nucleated RBC % 0.0 /100WBC Manual Slide Review Indicated Platelet Estimate NORMAL (130-450,000) (NORMAL) Platelet Morphology NORMAL APPEARANCE (NORMAL) RBC Morph Micro Appear 1+ HYPOCHROMASIA 2+ MACROCYTOSIS 1+ ANISOCYTOSIS (NORMAL) PT (9.9-12.6) secs INR (0.8-1.2) APTT (24.9-33.3) secs Sodium 138 (135-145) mmol/L Potassium 3.0 L (3.5-4.5) mmol/L Chloride 102 (101-111) mmol/L Carbon Dioxide 27 (21-32) mmol/L Anion Gap 9.0 (6-13) BUN 7 (6-20) mg/dL Creatinine 0.4 L (0.6-1.3) mg/dL Estimated GFR (MDRD) 166 (>89) Glucose 94 (74-104) mg/dL Calcium 7.8 L (8.5-10.3) mg/dL Phosphorus (2.5-5.0) mg/dL Magnesium (1.7-2.3) mg/dL Total Bilirubin 4.6 H (0.2-1.0) mg/dL Direct Bilirubin (0.03-0.18) mg/dL AST 60 H (10-42) IU/L ALT 17 (10-60) IU/L Alkaline Phosphatase 155 H (42-121) IU/L Total Protein 6.0 L (6.4-8.9) g/dL Albumin 2.7 L (3.2-5.5) g/dL Globulin 3.3 (2.1-4.2) g/dL Albumin/Globulin Ratio 0.8 L (1.0-2.2) Lipase (11-82) U/L Urine Color Urine Clarity (CLEAR) Urine pH (5.0-7.5) PH Ur Specific [place] (1.002-1.030) Urine Protein (NEGATIVE) mg/dL Urine Glucose (UA) (NEGATIVE) mg/dL Urine Ketones (NEGATIVE) mg/dL Urine Occult Blood (NEGATIVE) Urine Nitrite (NEGATIVE) Urine Bilirubin (NEGATIVE) Urine Urobilinogen (NORMAL) E.U./dL Ur Leukocyte Esterase (NEGATIVE) Urine RBC (0-5) /HPF Urine WBC (0-5) /HPF Ur Squamous Epith Cells (<= Few) Urine Bacteria (None Seen) /HPF Urine Casts /LPF Ur Microscopic Review Urine Culture Comments 10/28/24 10/28/24 10/28/24 Range/Units 20:15 16:46 16:11 WBC 11.8 H (4.8-10.8) x10^3/uL RBC 3.30 L (4.20-5.40) 10^6/uL Hgb 12.1 (12.0-16.0) g/dL Hct 36.3 L (37.0-47.0) % MCV 110.0 H (81.0-99.0) fL MCH 36.7 H (27.0-31.0) pg MCHC 33.3 (32.0-36.0) g/dL RDW 18.5 H (12.0-15.0) % Plt Count 176 (130-450) 10^3/uL MPV 8.8 (7.9-10.8) fL Neut # (Auto) 9.9 H (1.5-6.6) 10^3/uL Lymph # (Auto) 0.9 L (1.5-3.5) 10^3/uL [place] # (Auto) 0.8 (0.0-1.0) 10^3/uL Eos # (Auto) 0.1 (0.0-0.7) 10^3/uL Baso # (Auto) 0.1 (0.0-0.1) 10^3/uL Absolute Nucleated RBC 0.00 x10^3/uL Nucleated RBC % 0.0 /100WBC Manual Slide Review Platelet Estimate (NORMAL) Platelet Morphology (NORMAL) RBC Morph Micro Appear (NORMAL) PT 17.8 H (9.9-12.6) secs INR 1.6 H (0.8-1.2) APTT 36.7 H (24.9-33.3) secs Sodium 137 (135-145) mmol/L Potassium 3.1 L (3.5-4.5) mmol/L Chloride 95 L (101-111) mmol/L Carbon Dioxide 23 (21-32) mmol/L Anion Gap 19.0 H (6-13) BUN 8 (6-20) mg/dL Creatinine 0.5 L (0.6-1.3) mg/dL Estimated GFR (MDRD) 129 (>89) Glucose 111 H (74-104) mg/dL Calcium 8.7 (8.5-10.3) mg/dL Phosphorus 2.4 L (2.5-5.0) mg/dL Magnesium 1.7 (1.7-2.3) mg/dL Total Bilirubin 5.6 H (0.2-1.0) mg/dL Direct Bilirubin 3.16 H (0.03-0.18) mg/dL AST 74 H (10-42) IU/L ALT 21 (10-60) IU/L Alkaline Phosphatase 189 H (42-121) IU/L Total Protein 6.7 (6.4-8.9) g/dL Albumin 3.2 (3.2-5.5) g/dL Globulin 3.5 (2.1-4.2) g/dL Albumin/Globulin Ratio 0.9 L (1.0-2.2) Lipase 22 (11-82) U/L Urine Color YELLOW Urine Clarity CLEAR (CLEAR) Urine pH 7.0 (5.0-7.5) PH Ur Specific [place] 1.010 (1.002-1.030) Urine Protein NEGATIVE (NEGATIVE) mg/dL Urine Glucose (UA) NEGATIVE (NEGATIVE) mg/dL Urine Ketones 40 H (NEGATIVE) mg/dL Urine Occult Blood NEGATIVE (NEGATIVE) Urine Nitrite NEGATIVE (NEGATIVE) Urine Bilirubin NEGATIVE (NEGATIVE) Urine Urobilinogen 4 H (NORMAL) E.U./dL Ur Leukocyte Esterase TRACE H (NEGATIVE) Urine RBC None Seen (0-5) /HPF Urine WBC 4-5 (0-5) /HPF Ur Squamous Epith Cells RARE Squamous (<= Few) Urine Bacteria Many H (None Seen) /HPF Urine Casts 0-2 Hyaline Casts /LPF Ur Microscopic Review INDICATED Urine Culture Comments INDICATED Assessment/Plan Problem List (1) Liver mass: (2) Alcohol abuse: (3) High cholesterol: (4) HTN (hypertension):
[2024-10-29] MEDS: POTASSIUM CHLORIDE 20 MEQ TABLET PO ONE (09:03)
[2024-10-29] MEDS: HEPARIN 5,000 UNIT/ML VIAL SUBQ SCH (09:04)
[2024-10-29] MEDS ORDERED: GADOXETATE DISODIUM 2.5 MMOL/10 ML VIAL ONE (11:43)
[2024-10-29] MEDS: GADOXETATE DISODIUM 2.5 MMOL/10 ML VIAL IVP ONE (12:23)
--- NOTE | 2024-10-29 13:36 | MRI Report ---
PROCEDURE: MRI Abdomen W/WO INDICATIONS: possible liver abscesses. CONTRAST: Eovist 7.3 ml TECHNIQUE: Multisequence, multiplanar MRI of the abdomen was performed, with and without intravenous contrast. COMPARISON: Abdominal ultrasound and CT abdomen pelvis 10/28/2024. CT abdomen pelvis 06/16/2023. FINDINGS: Image quality: Diagnostic. Lung bases and heart: No pleural effusions. Partially imaged bilateral breast implants. Liver: Hepatomegaly at 23.3 cm, slightly increased compared to prior. Diffuse, mildly increased T1 and T2 signal. Heterogeneous signal loss on T1 out of phase imaging. There are scattered ovoid and rounded areas of mixed T1 and T2 hyperintense signal in the gallbladder fossa. No peripheral or internal enhancement. There is no restricted diffusion in these lesions. No other focal liver lesions. No suspicious arterial enhancement. Gallbladder: Mildly hypointense, dependent, masslike material, potentially sludge. No gallbladder wall thickening. Trace pericholecystic fluid. Biliary tree: No intrahepatic or extrahepatic dilation, accounting for age. Spleen: Borderline splenomegaly. Pancreas: No pancreatic ductal dilation. Adrenals: No adrenal nodule. Kidneys and ureters: No hydronephrosis. No renal cystic lesion which requires follow up. No solid mass. Bowel and peritoneum: The stomach and visible small and large bowel loops are within normal limits. Partial gastrectomy. Lymph nodes: No central or retroperitoneal adenopathy. Vessels: No infrarenal aortic aneurysm. Bones: No aggressive osseous abnormality. Other: No significant ventral hernia. IMPRESSION: Hepatomegaly and heterogeneous hepatic parenchyma suggestive of intrinsic liver disease or liver injury. Focal lesions in the gallbladder fossa demonstrate MR characteristics most suggestive of focal fat deposition. Cholelithiasis. Borderline splenomegaly. Reviewed by: Gabby Tapia MD on 10/29/2024 1:32 PM PDT Approved by: Gabby Tapia MD on 10/29/2024 1:32 PM PDT Station ID: [id number]
--- NOTE | 2024-10-29 14:28 | PHARMACY PROGRESS NOTE ---
Best Possible Medication History Admit Date and Time: 10/28/242123 Home Medications Medication Instructions Recorded Confirmed Type No Known Home Medications 10/28/2410/11 History Processed by: Pharmacy (Medication reconciliation completed by Cloth SanderHector) Medications reviewed in ED?: No Medication History completed: Yes Patient Interview: Completed Secondary Source(s): Insurance records [facility] Statement: As the person ultimately responsible for medication therapy, providers are able to order a medication from an existing home medication list in [facility] via the "Reconcile Routine" prior to Confirmation of that medication by pc support specialist. Such practice is discouraged except when the physician, in their clinical judgment, deems that a medical need exists for a medication without regard to previous use.
--- NOTE | 2024-10-29 18:00 | Discharge Summary ---
Discharge Summary Admit Date: 10/28/24 Discharge Date: 10/29/24 Discharging Provider: Antoni Mascorro Primary Care Provider: No PCP Code Status: Attempt Resuscitation DIAGNOSES Discharge Diagnoses with Status of Each Condition: Alcoholic hepatitis Abnormal liver imaging, resolved Suspected liver disease, chronic Asymptomatic bacteriuria Nausea and vomiting, improved HPI History of Present Illness: 54-year-old female with history of alcoholism, 5 days since her last drink presents to the emergency department with complaints of weakness nausea and vomiting for the last 4 days. She states it has been 5 days since her last drink. She had weaned herself down off of drinking vodka "all day every day for years. She was treated in the emergency department for her vomiting with Zofran and lorazepam. She did have success but in the course of her workup had a right upper quadrant ultrasound significant for contracted gallbladder with cholelithiasis as well as a CT of the abdomen pelvis which is suggestive of possible liver abscess. She has not been running any fever or chills she has been having a pressure-like pain in the right upper quadrant of her abdomen that has been ongoing for quite some time now. She had been having loose stools until yesterday when she had a normal formed bowel movement. She has a past surgical history of gastric sleeve. She has never had a screening colonoscopy and she does not know if she has any history of bowel disease. Denies IVDU, tobacco, marijuana. CONSULTS | PROCEDURES Procedures: CT and MRI of the liver HOSPITAL COURSE Hospital Course: Patient came in after having several days of malaise and nausea with poor appetite. She was found in the ED to have abnormal liver enzymes and abnormal finding on her CT with concern for mass. She was admitted ostensibly for observation to get MRI as recommended by radiology to further characterize the 2 small masses in her JUAN cholecystic region of her liver. MRI was able to be conducted on the day of discharge. That MRI just revealed that the areas of interest were small fatty deposits in the setting of overall hepatic steatosis. Her alcoholic liver disease is difficult to characterize whether she is fully cirrhotic. Her imaging is not wholly consistent with this. She is not in alcohol withdrawal throughout this hospitalization. She last drank 5 days ago. She did say she tried to wean herself off of drinking, and did not experience significant withdrawal symptoms such as anxiety or tremor. Her labs were consistent with alcoholic hepatitis when she arrived. Her Madrey's discriminant function was 36. She was started on prednisone 40 mg. She felt better throughout the day after starting on steroids and was able to eat without significant nausea. She feels more energy. She is comfortable going home with her and her in-laws. Extensive conversations throughout this hospitalization that given her liver disease and alcoholic hepatitis, she should not return to alcohol in any measure in the near future. Her hospitalization was complicated by social determinants of health, particularly that she is uninsured prior to this hospitalization. She was able to work with social work, and per their report, she should have [employer] active as of Friday, 11/01. Have advised her at that time she should immediately reach out to schedule an appointment with a primary care doctor. At that first visit, a CMP should be obtained. Depending on the results of that, I would advise calculating a fib 4 score and consideration should be made for referral to have a FibroScan versus referral to hepatology. In the meantime she is to complete a 4-week course of oral corticosteroid with prednisone 40 mg. This has been sent to the pharmacy. She also requested a limited course of antiemetics to be sent to the pharmacy as well. ALLERGIES Allergies Allergy/AdvReac Type Severity Reaction Status Date / Time No Known Drug Allergies Allergy Verified 10/28/24 15:29 MEDICATIONS Ambulatory Orders Medication Instructions Recorded Confirmed ondansetron HCl 4 mg tablet 4 mg PO Q8H PRN nausea and 10/29/24 vomiting #10 tabs prednisone 20 mg tablet 40 mg (2 x 20 mg) PO DAILYWM 27 10/29/24 days #54 tabs PHYSICAL EXAM AT DISCHARGE Vital Signs: Vital Signs x48h Temp Pulse Resp BP Pulse Ox 10/29/24 18:40 36.8 C 93 16 150/85 H 98 10/29/24 16:04 36.9 C 91 16 130/74 95 GEN: No acute distress, Mildly jaundiced HEENT: NC/AT, normal appearance of external ears and nose. Hearing baseline. Cardiac: Regular rate and rhythm, no murmurs. Pulm: Lungs CTA bilaterally, no cough, no wheezes Abdomen: Soft, nontender, nondistended. No rebound or guarding. No palpable liver edge below costal margin Extremities: Moves all 4 extremities equally. Normal tone. Neuro: Face symmetric, CN II through XII intact grossly. No focal deficits. Gait exam deferred Psych: Mood euthymic with congruent affect LABS 10/29/24 04:50 10/29/24 04:50 DIAGNOSTIC IMAGING Diagnostic Imaging Results: Final report reviewed FOLLOW UP Follow Up: Patient to establish primary care on Friday after she gets insurance through [employer]. Will need repeat CMP in 4 weeks Consider referral for fibroscan Consider referral to hepatology TIME SPENT Time Spent in Discharge (Minutes): 78 Discharge Plan Discharge Patient Disposition: Home, Self Care Condition: Stable Medically Cleared Date:: 10/29/24 Prescriptions: New prednisone 20 mg Tablet 40 mg PO DAILYWM 27 Days Qty: 54 0RF ondansetron HCl 4 mg tablet 4 mg PO Q8H PRN (Reason: nausea and vomiting) Qty: 10 0RF Diet: Regular Interventions: Discharge Last Done: 10/29/24 18:28 Discharge Checklist - Nursing Last Done: 10/29/24 18:28 Discharge Vital Signs (30 Minutes) Last Done: 10/29/24 18:40 Health Concerns: You came in had nausea and vomiting related to your liver. You have a condition known as alcoholic hepatitis. You are being treated with steroids which I hope help you feel better. The gee to your treatment is ongoing sobriety and I recommend abstinence from all alcohol for at least the next 6 months to a year. I would advise that you follow-up with a primary care doctor, and you should have insurance as of Friday to do this. You have some evidence of liver disease, but this is hard to interpret in the setting of your acute inflammation in your liver. I have prescribed Zofran which you can take orally for nausea. As we discussed, I recommend for your insomnia that you take an [id number] melatonin 3 to 5 mg at least 2 hours before you intend to go to bed. Then make sure the room is systolic as possible and avoid any screens for 30 minutes prior to bedtime. With the steps I anticipate you should have better success getting to sleep and staying asleep. If this fails, would recommend you follow-up with your new primary care doctor. Print Language: [place] Patient Instructions: Alcohol Use Disorder: Getting Help, Addiction Recovery Counseling Stand Alone Forms: PCP List Vitals documented within 30 minutes of discharge?: Yes
[2024-10-29 18:41] VITALS: BP 150/85; TEMP 98.2; O2SAT 98
== END 2024-10-29 18:41 | disposition home or self-care (01) ==
LOC: MS3 15:07 → ED 15:07 → MS3 21:52
PROVIDERS: ADMIT Physician Assistant Medical; ATTEND Physician Assistant Medical
DX: I10 Essential (primary) hypertension; F10.239 Alcohol dependence with withdrawal, unspecified; K80.20 Calculus of gallbladder without cholecystitis without obstruction; E78.5 Hyperlipidemia, unspecified; R11.2 Nausea with vomiting, unspecified; Z59.71 Insufficient health insurance coverage; G47.00 Insomnia, unspecified; K70.9 Alcoholic liver disease, unspecified; R82.71 Bacteriuria; Z68.24 Body mass index [BMI] 24.0-24.9, adult; E80.6 Other disorders of bilirubin metabolism; K70.10 Alcoholic hepatitis without ascites; R53.1 Weakness; R63.0 Anorexia